=== PATIENT | male | born 1960 | race Caucasian/White ===

== ENCOUNTER 2017-05-23 15:01 | Outpatient (CLI) | payer OTHER | END 2017-05-23 15:58 | disposition home or self-care (01) | LOC: HPC 15:01 | DX: S50.871D Other superficial bite of right forearm, subsequent encounter (principal); L03.113 Cellulitis of right upper limb; W54.0XXD Bitten by dog, subsequent encounter; F32.9 Major depressive disorder, single episode, unspecified; M54.10 Radiculopathy, site unspecified; Z72.0 Tobacco use; G40.909 Epilepsy, unspecified, not intractable, without status epilepticus; Z85.118 Personal history of other malignant neoplasm of bronchus and lung | CPT/HCPCS: Z7500 ==

== ENCOUNTER 2017-11-17 01:24 | Emergency (ER) | payer OTHER ==
[2017-11-17] MEDS: SOD CHLORIDE 0.9% 1,000 ML IV (03:30)
[2017-11-17 03:32] LABS: ADD MAN DIFF? NO; BASOPHIL # 0.1 10^3/ul (0.0-0.1); BASOPHILS % 0.4 % (0.0-2.0); EOSINOPHILS # 0.2 10^3/ul (0.0-0.5); HEMATOCRIT 45.9 % (42.0-52.0); HEMOGLOBIN 15.8 g/dl (14.0-18.0); LYMPHOCYTES # 3.4 10^3/ul (0.8-2.9); LYMPHOCYTES % 30.2 % (15.0-51.0); MEAN CORPUSCULAR HEMOGLOBIN 33.7 pg (29.0-33.0); MEAN CORPUSCULAR HGB CONC 34.4 g/dl (32.0-37.0); MEAN CORPUSCULAR VOLUME 97.9 fl (82.0-101.0); MONOCYTE # 0.8 10^3/ul (0.3-0.9); NEUTROPHIL # 6.7 10^3/ul (1.6-7.5); NEUTROPHILS % 60.1 % (39.0-77.0); PLATELET COUNT 260 10^3/UL (140-415); RED BLOOD COUNT 4.69 10^6/ul (4.70-6.10); RED CELL DISTRIBUTION WIDTH 13.3 % (11.5-14.5)
[2017-11-17 03:32] LABS: WHITE BLOOD COUNT 11.1 10^3/ul (4.8-10.8)
[2017-11-17 03:54] LABS: ALANINE AMINOTRANSFERASE 61 IU/L (13-69); ALBUMIN 4.5 g/dl (3.3-4.9); ALBUMIN/GLOBULIN RATIO 1.18; ALKALINE PHOSPHATASE 150 IU/L (42-121); ANION GAP 16 (8-16); ASPARTATE AMINO TRANSFERASE 57 IU/L (15-46); BILIRUBIN,INDIRECT 0.3 mg/dl (0-1.1); BILIRUBIN,TOTAL 0.3 mg/dl (0.2-1.3); BLOOD UREA NITROGEN 6 mg/dl (7-20); CALCIUM 8.9 mg/dl (8.4-10.2); CARBON DIOXIDE 20 mmol/L (21-31); CHLORIDE 111 mmol/L (97-110); CREATININE 1.08 mg/dl (0.61-1.24); GLUCOSE 109 mg/dl (70-220); SODIUM 142 mmol/L (135-144); TOTAL PROTEIN 8.3 g/dl (6.1-8.1)
== END 2017-11-17 04:58 | disposition home or self-care (01) ==
LOC: FTE 01:24
DX: E86.0 Dehydration (principal); M25.462 Effusion, left knee; Z87.891 Personal history of nicotine dependence
CPT/HCPCS: 73562; 80053; 85025; 99284-25

== ENCOUNTER 2018-09-25 | Emergency (ER) | payer OTHER ==
[2018-09-25] MEDS: HYDROCODONE/APAP (5/325) TAB PO (06:34)
[2018-09-25] MEDS: ONDANSETRON (ODT) 4 MG TAB ODT (06:34)
== END 2018-09-25 08:41 | disposition home or self-care (01) ==
LOC: FTE 08:41
DX: S22.32XA Fracture of one rib, left side, initial encounter for closed fracture (principal); F17.210 Nicotine dependence, cigarettes, uncomplicated; S20.222A Contusion of left back wall of thorax, initial encounter; Y00.XXXA Assault by blunt object, initial encounter
CPT/HCPCS: 71045; 71100; 99283-25